=== PATIENT | female | born 1985 | race Caucasian/White ===

== ENCOUNTER 2016-11-18 11:13 | Emergency (ER) | payer SELFPAY ==
[2016-11-18 11:26] VITALS: TEMP 97.9
[2016-11-18 12:09] LABS: COLOR YELLOW; LEUKOCYTE ESTERASE,URINE 1+ (NEGATIVE); NITRITE,URINE POSITIVE (NEGATIVE)
--- NOTE | 2016-11-18 12:14 | EDPHY ---
H & P Stated Complaint: UTI sxs; also has L flank and abd pain Time Seen by Provider: 11/18/16 11:32 HPI/ROS: CHIEF COMPLAINT: Abdominal pain, flank pain HISTORY OF PRESENT ILLNESS: 31-year-old female presents emergency department complaining of a 3 day history of urinary frequency, urgency and dysuria. She reports left lower quadrant abdominal pain and flank pain as well that started today. Patient denies any new vaginal discharge, no odor. She reports pain with intercourse. Patient is sexually active, she reports a history herpes as a teenager, she denies other history of STDs. Patient reports subjective fevers and chills. Decreased appetite. She denies any change in bowel pattern. Patient has had multiple abdominal surgeries since she was an where she had most of her small bowel removed. She has short-bowel syndrome. Patient reports a history of ovarian cysts and urinary tract infections. REVIEW OF SYSTEMS: A comprehensive 10 point review of systems is otherwise negative aside from elements mentioned in the history of present illness. Source: Patient Exam Limitations: No limitations - Personal History LMP (Females 10-55): 15-21 Days Ago Current Tetanus Diphtheria and Acellular Pertussis (TDAP): Yes - Medical/Surgical History Other PMH: short bowel syndrome. ovarian cyst. recurrent UTIs - Social History Smoking Status: Never smoked - Physical Exam Exam: Physical Exam Gen: Alert and Oriented, grimacing HEENT: PERRL, moist mucous membranes NECK: no meningismus CV: regular rate and regular rhythm PULM: CTAB, no wheezes ABDOMEN: soft, diffuse lower abdominal tenderness to palpation BACK: Left CVA tenderness NEURO: Neurologically grossly intact EXTREMITIES: normal appearing SKIN: no rash or break in skin on exposed skin PSYCH: answers questions appropriately. Constitutional: Initial Vital Signs Temperature (C) 36.6 C 11/18/16 11:21 Heart Rate 95 11/18/16 11:21 Respiratory Rate 18 11/18/16 11:21 Blood Pressure 98/68 L 11/18/16 11:21 O2 Sat (%) 94 11/18/16 11:21 O2 Delivery Mode Room Air Allergies/Adverse Reactions: azithromycin [From Zithromax] Allergy (Intermediate, Verified 11/18/16 11:28) full body rash/hives ceftriaxone [From Rocephin] Allergy (Intermediate, Verified 11/18/16 11:28) full body rash/hives codeine Allergy (Intermediate, Verified 11/18/16 11:28) full body rash/hives levofloxacin [From Levaquin] Allergy (Intermediate, Verified 11/18/16 11:28) full body rash/hives Penicillins Allergy (Intermediate, Verified 11/18/16 11:28) full body rash/hives Home Medications: Medication Instructions Recorded Cephalexin [Keflex] 500 mg PO TID 7 Days 11/18/16 Phenazopyridine HCl [Pyridium] 200 mg PO TID #6 tab 11/18/16 Medical Decision Making ED Course/Re-evaluation: IV is established, CBC and chemistry panel obtained along with urinalysis. CBC is normal with a normal WBC. Chemistry panel shows a creatinine of 1.3. Urinalysis shows 50-182 WBCs and positive nitrates. Patient will be treated with Keflex. She is given her 1st dose in the emergency department and sent home with a prescription of this. Patient agrees to follow up with [facility] this week to have her kidney function tests repeated. I have recommended hydration and have told her to not take NSAIDs until she has her repeat kidney function tests. Chlamydia and gonorrhea tests are pending. Patient does not want to be treated for these, she will call for her results. Differential Diagnosis: Diagnosis considered but not limited to urinary tract infection, pyelonephritis , STD, tubo-ovarian abscess. - Data Points Laboratory Results: Laboratory Results 11/18/16 12:22 11/18/16 12:22 11/18/16 11/18/16 11/18/16 12:22 12:22 11:25 WBC 5.90 10^3/uL 10^3/uL (3.80-9.50) RBC 4.44 10^6/uL 10^6/uL (4.18-5.33) Hgb 13.4 g/dL g/dL (12.6-16.3) Hct 39.6 % % (38.0-47.0) MCV 89.2 fL fL (81.5-99.8) MCH 30.2 pg pg (27.9-34.1) MCHC 33.8 g/dL g/dL (32.4-36.7) RDW 12.9 % % (11.5-15.2) Plt Count 192 10^3/uL 10^3/uL (150-400) MPV 9.4 fL fL (8.7-11.7) Neut % (Auto) 58.6 % % (39.3-74.2) Lymph % (Auto) 29.5 % % (15.0-45.0) [place] % (Auto) 6.6 % % (4.5-13.0) Eos % (Auto) 4.6 % % (0.6-7.6) Baso % (Auto) 0.5 % % (0.3-1.7) Nucleat RBC Rel Count 0.0 % % (0.0-0.2) Absolute Neuts (auto) 3.46 10^3/uL 10^3/uL (1.70-6.50) Absolute Lymphs (auto) 1.74 10^3/uL 10^3/uL (1.00-3.00) Absolute Monos (auto) 0.39 10^3/uL 10^3/uL (0.30-0.80) Absolute Eos (auto) 0.27 10^3/uL 10^3/uL (0.03-0.40) Absolute Basos (auto) 0.03 10^3/uL 10^3/uL (0.02-0.10) Absolute Nucleated RBC 0.00 10^3/uL 10^3/uL (0-0.01) Immature Gran % 0.2 % % (0.0-1.1) Immature Gran # 0.01 10^3/uL 10^3/uL (0.00-0.10) Sodium 139 mEq/L mEq/L (134-144) Potassium 4.5 mEq/L mEq/L (3.5-5.2) Chloride 101 mEq/L mEq/L (97-110) Carbon Dioxide 27 mEq/l mEq/l (22-31) Anion Gap 11 mEq/L mEq/L (8-16) BUN 18 mg/dL mg/dL (7-23) Creatinine 1.3 mg/dL H mg/dL (0.6-1.0) Estimated GFR 47 Glucose 83 mg/dL mg/dL (70-100) Calcium 9.6 mg/dL mg/dL (8.5-10.4) Urine Color Urine Appearance Urine pH Ur Specific [place] Urine Protein Urine Ketones Urine Blood Urine Nitrate Urine Bilirubin Urine Urobilinogen Ur Leukocyte Esterase Urine RBC Urine WBC Ur Epithelial Cells Calcium Oxalate Crystal Urine Bacteria Urine Mucus Urine Glucose Urine Test C.trachomatis RNA (TMA) Pending N.gonorrhoeae RNA (TMA) Pending 11/18/16 11/18/16 11:25 11:25 WBC RBC Hgb Hct MCV MCH MCHC RDW Plt Count MPV Neut % (Auto) Lymph % (Auto) [place] % (Auto) Eos % (Auto) Baso % (Auto) Nucleat RBC Rel Count Absolute Neuts (auto) Absolute Lymphs (auto) Absolute Monos (auto) Absolute Eos (auto) Absolute Basos (auto) Absolute Nucleated RBC Immature Gran % Immature Gran # Sodium Potassium Chloride Carbon Dioxide Anion Gap BUN Creatinine Estimated GFR Glucose Calcium Urine Color YELLOW Urine Appearance HAZY Urine pH 6.0 (5.0-7.5) Ur Specific [place] 1.015 (1.002-1.030) Urine Protein NEGATIVE (NEGATIVE) Urine Ketones NEGATIVE (NEGATIVE) Urine Blood 1+ H (NEGATIVE) Urine Nitrate POSITIVE H (NEGATIVE) Urine Bilirubin NEGATIVE (NEGATIVE) Urine Urobilinogen NEGATIVE EU EU (0.2-1.0) Ur Leukocyte Esterase 1+ H (NEGATIVE) Urine RBC 5-10 /hpf H /hpf (0-3) Urine WBC 50-182 /hpf H /hpf (0-3) Ur Epithelial Cells TRACE /lpf /lpf (NONE-1+) Calcium Oxalate Crystal PRESENT /hpf /hpf (NONE-1+) Urine Bacteria 1+ /hpf H /hpf (NONE SEEN) Urine Mucus TRACE /lpf /lpf (NONE-1+) Urine Glucose NEGATIVE (NEGATIVE) Urine Test NEGATIVE C.trachomatis RNA (TMA) N.gonorrhoeae RNA (TMA) Medications Given: Discontinued Medications Acetaminophen (Tylenol) 650 mg PO EDNOW ONE Stop: 11/18/16 13:22 Last Admin: 11/18/16 13:24 Dose: 650 mg Phenazopyridine HCl (Pyridium) 200 mg PO EDNOW ONE Stop: 11/18/16 13:05 Last Admin: 11/18/16 13:24 Dose: 200 mg Departure - Departure Disposition: Home, Routine, Self-Care Clinical Impression: Urinary tract infection Qualifiers: Urinary tract infection type: acute cystitis Hematuria presence: with hematuria Qualified Code(s): N30.01 - Acute cystitis with hematuria Condition: Good Instructions: Urinary Tract Infection in Women (ED) Additional Instructions: Take 500mg of cephalexin three times daily for 7 days. Take 200mg pyridium every 8 hours as needed for pain. Return to the emergency department for any fevers, vomiting, worsening symptoms or concerns. [facility] to have [facility] function tests repeated. Referrals: [facility],. [Clinic] - As per Instructions Prescriptions: Cephalexin [Keflex] 500 mg PO TID 7 Days Phenazopyridine HCl [Pyridium] 200 mg PO TID #6 tab
[2016-11-18 12:20] LABS: BACTERIA 1+ /hpf (NONE SEEN); MUCUS TRACE /lpf (NONE-1+); WBC,URINE 50-182 /hpf (0-3)
[2016-11-18 12:38] LABS: % IMMATURE GRANULYOCYTES 0.2 % (0.0-1.1); ABSOLUTE IMMATURE GRANULOCYTES 0.01 10^3/uL (0.00-0.10); ADD DIFF? NO; ADD MORPH? NO; ADD SCAN? NO; ATYPICAL LYMPHOCYTE FLAG 10 (0-99); FRAGMENT RBC FLAG 0 (0-99); HEMATOCRIT 39.6 % (38.0-47.0); HEMOGLOBIN 13.4 g/dL (12.6-16.3); LEFT SHIFT FLG 0 (0-99); LIPEMIA HEMOLYSIS FLAG 90 (0-99); MEAN CELL HEMOGLOBIN 30.2 pg (27.9-34.1); MEAN CELL HEMOGLOBIN CONCENTR. 33.8 g/dL (32.4-36.7); MEAN CELL VOLUME 89.2 fL (81.5-99.8); MEAN PLATELET VOLUME 9.4 fL (8.7-11.7); PLATELET CLUMPS FLAG 0 (0-99); PLATELET COUNT 192 10^3/uL (150-400); RED BLOOD CELL COUNT 4.44 10^6/uL (4.18-5.33); RED CELL DISTRIBUTION WIDTH 12.9 % (11.5-15.2)
[2016-11-18 12:49] LABS: ANION GAP 11 mEq/L (8-16); CALCIUM 9.6 mg/dL (8.5-10.4); CARBON DIOXIDE 27 mEq/l (22-31); CHLORIDE 101 mEq/L (97-110); CREATININE 1.3 mg/dL (0.6-1.0); GLOMERULAR FILTRATION RATE 47; GLUCOSE 83 mg/dL (70-100); POTASSIUM 4.5 mEq/L (3.5-5.2); SODIUM 139 mEq/L (134-144)
[2016-11-18] MEDS ORDERED: PHENAZOPYRIDINE HCL 200 MG TAB PO ONE (13:04)
[2016-11-18] MEDS ORDERED: IBUPROFEN 600 MG TAB PO ONE (13:20)
[2016-11-18] MEDS ORDERED: ACETAMINOPHEN 325 MG TAB PO ONE (13:21)
[2016-11-18 13:35] VITALS: BP 102/69; PULSE 104; RESP 16; O2SAT 96
[2016-11-19 13:29] LABS: CHLAMYDIA AMPLIFICATION GENPRB NEGATIVE (NEGATIVE)
== END 2016-11-18 13:34 | disposition home or self-care (01) ==
DX: N30.01 Acute cystitis with hematuria (principal); B96.20 Unspecified Escherichia coli [E. coli] as the cause of diseases classified elsewhere

== ENCOUNTER 2017-05-02 13:32 | Day surgery (SDC) | payer MEDICAID ==
[2017-05-02 13:43] VITALS: TEMP 96.6
[2017-05-02] MEDS ORDERED: FAMOTIDINE 20 MG/NACL 50 ML IV ONE (13:49)
[2017-05-02] MEDS ORDERED: ONDANSETRON 4 MG/2 ML VIAL IVP ONE (13:49)
[2017-05-02] MEDS ORDERED: GLUCAGON HCL 1 MG VIAL IVP ONE (13:50)
[2017-05-02 14:02] LABS: PLATELET COUNT 227 10^3/uL (150-400)
--- NOTE | 2017-05-02 14:14 | EDPHY ---
H & P Time Seen by Provider: 05/02/17 13:34 HPI/ROS: CHIEF COMPLAINT: Foreign body in throat HISTORY OF PRESENT ILLNESS: Patient is a 31-year-old female who presents emergency room with foreign body stuck in her throat. Patient states that she was eating a brought worst when it got stuck in her mid chest. She now is unable to tolerate her secretions. She has no shortness of breath. No cough. Patient has had previous issues with food getting stuck. She has previously received medication that is released the food. Patient also has small bowel syndrome with numerous abdominal surgeries. She has never had surgery on her soft [place]. She has had no dilatation to her esophagus. REVIEW OF SYSTEMS: My complete review of systems is negative except as mentioned in the HPI. Past Medical/Surgical History: Includes previous esophageal foreign body, small-bowel syndrome, kidney stone Past surgical history: Resection of small intestine, nephrostomy tube, cholecystectomy Social history: The patient does smoke Smoking Status: Never smoked Physical Exam: Vitals noted GENERAL: Mild acute distress, alert. HEENT: Eyes normal to inspection, normal pharynx, no signs of dehydration. NECK: [No thyromegaly, no lymphadenopathy, supple. No stridor RESPIRATORY: Clear to auscultation bilaterally, no rales, rhonchi or wheezing. CVS: Regular rate and rhythm, no rubs, murmurs, or gallops. ABDOMEN: Soft, nontender, nondistended, no organomegaly. BACK: Normal to inspection, no CVA tenderness. SKIN: Normal color, no rash, warm, dry. No pallor. EXTREMITIES: No pedal edema, no calf tenderness, no Homans sign or cords, no joint swelling. NEURO/PSYCH: Alert and oriented x3, normal mood and affect, normal motor sensory exam. Constitutional: Initial Vital Signs Temperature (C) 35.9 C L 05/02/17 13:39 Heart Rate 71 05/02/17 13:39 Respiratory Rate 24 H 05/02/17 13:39 Blood Pressure 116/84 H 05/02/17 13:39 O2 Sat (%) 93 05/02/17 13:39 O2 Delivery Mode Room Air Allergies/Adverse Reactions: azithromycin [From Zithromax] Allergy (Intermediate, Verified 05/02/17 13:37) full body rash/hives ceftriaxone [From Rocephin] Allergy (Intermediate, Verified 05/02/17 13:37) full body rash/hives codeine Allergy (Intermediate, Verified 05/02/17 13:37) full body rash/hives levofloxacin [From Levaquin] Allergy (Intermediate, Verified 05/02/17 13:37) full body rash/hives Penicillins Allergy (Intermediate, Verified 05/02/17 13:37) full body rash/hives Home Medications: Medication Instructions Recorded Albuterol 05/02/17 Medical Decision Making ED Course/Re-evaluation: In the emergency department I discussed possible etiology. An IV was placed. Laboratory studies were obtained. Patient received glucagon 1 g IV and Zofran 4 mg IV. On recheck the patient did not feeling better after receiving glucagon. I subsequently paged GI. I discussed case with Dr. Lopez. He will place the patient on the schedule to have endoscopy performed. He recommend the patient receive Ativan 1 mg IV. This was ordered. I discussed the plan with the patient. I answered all her questions. On recheck the patient was stable. She had no respiratory distress. Differential Diagnosis: My differential includes but is not limited to esophageal foreign body, airway occlusion, tracheal foreign body, allergic reaction, esophageal rupture, peptic ulcer disease, stricture - Data Points Laboratory Results: Laboratory Results 05/02/17 13:48 05/02/17 13:48 05/02/17 05/02/17 05/02/17 13:48 13:48 13:48 WBC 6.61 10^3/uL 10^3/uL (3.80-9.50) RBC 4.46 10^6/uL 10^6/uL (4.18-5.33) Hgb 14.0 g/dL g/dL (12.6-16.3) Hct 41.4 % % (38.0-47.0) MCV 92.8 fL fL (81.5-99.8) MCH 31.4 pg pg (27.9-34.1) MCHC 33.8 g/dL g/dL (32.4-36.7) RDW 13.6 % % (11.5-15.2) Plt Count 227 10^3/uL 10^3/uL (150-400) MPV 9.5 fL fL (8.7-11.7) Neut % (Auto) 59.1 % % (39.3-74.2) Lymph % (Auto) 28.3 % % (15.0-45.0) [place] % (Auto) 8.5 % % (4.5-13.0) Eos % (Auto) 3.0 % % (0.6-7.6) Baso % (Auto) 0.6 % % (0.3-1.7) Nucleat RBC Rel Count 0.0 % % (0.0-0.2) Absolute Neuts (auto) 3.91 10^3/uL 10^3/uL (1.70-6.50) Absolute Lymphs (auto) 1.87 10^3/uL 10^3/uL (1.00-3.00) Absolute Monos (auto) 0.56 10^3/uL 10^3/uL (0.30-0.80) Absolute Eos (auto) 0.20 10^3/uL 10^3/uL (0.03-0.40) Absolute Basos (auto) 0.04 10^3/uL 10^3/uL (0.02-0.10) Absolute Nucleated RBC 0.00 10^3/uL 10^3/uL (0-0.01) Immature Gran % 0.5 % % (0.0-1.1) Immature Gran # 0.03 10^3/uL 10^3/uL (0.00-0.10) Sodium 143 mEq/L mEq/L (135-145) Potassium 3.9 mEq/L mEq/L (3.5-5.2) Chloride 108 mEq/L mEq/L (97-110) Carbon Dioxide 19 mEq/l L mEq/l (22-31) Anion Gap 16 mEq/L mEq/L (8-16) BUN 13 mg/dL mg/dL (7-23) Creatinine 0.8 mg/dL mg/dL (0.6-1.0) Estimated GFR > 60 Glucose 80 mg/dL mg/dL (70-100) Calcium 9.3 mg/dL mg/dL (8.5-10.4) Beta HCG, Qual NEGATIVE Medications Given: Discontinued Medications Glucagon (Glucagon) 1 mg IVP EDNOW ONE Stop: 05/02/17 13:51 Last Admin: 05/02/17 13:58 Dose: 1 mg Famotidine/Sodium Chloride (Pepcid 20 Mg (Premix)) 50 mls @ 200 mls/hr IV EDNOW ONE Stop: 05/02/17 14:03 Last Admin: 05/02/17 14:00 Dose: 50 mls Ondansetron HCl (Zofran) 4 mg IVP EDNOW ONE Stop: 05/02/17 13:50 Last Admin: 05/02/17 13:57 Dose: 4 mg Departure - Departure Disposition: To OP Cath/Surgery Clinical Impression: Esophageal foreign body Qualifiers: Encounter type: initial encounter Qualified Code(s): T18.108A - Unspecified foreign body in esophagus causing other injury, initial encounter Condition: Good Instructions: Esophageal Foreign Body (ED) Referrals: Cosmo Lopez MD, FACG [Medical Doctor] - As per Instructions
[2017-05-02] MEDS ORDERED: LORazepam 2 MG/ML INJ IVP ONE (14:37)
[2017-05-02] MEDS ORDERED: fentaNYL 100 MCG/2 ML INJ ONE (15:33)
[2017-05-02] MEDS ORDERED: MIDAZOLAM 2 MG/2 ML VIAL ONE (15:33)
[2017-05-02 15:38] VITALS: RESP 16
--- NOTE | 2017-05-02 16:20 | GIREPORT ---
[facility] - Endoscopy Department Patient Name: Lissa Moseley Procedure Date: 05/02/2017 3:18 PM Patient Type: Inpatient Attending MD/ ER Physician: Cosmo Lopez MD Procedure: Upper GI endoscopy Indications: Note dictated, consult appreciated. Foreign body in the esophagus. Providers: Cosmo Lopez MD Referring MD: Mary Jane Hsu MD Medicines: Fentanyl 100 micrograms IV, Midazolam 6 mg IV, Diphenhydramine 50 mg IV Complications: No immediate complications. Description of Procedure: After obtaining informed consent, the endoscope was passed under direct vision. Throughout the procedure, the patient's blood pressure, pulse, and oxygen saturations were monitored continuously. The Endoscope was intro duced through the mouth, and advanced to the pylorus. Findings: Food was found in the middle third of the esophagus. Removal of food wa s accomplished, by gently pushing into the stomach. A few subtle rings were found in the lower third of the esophagus. Biop sies were taken with a cold forceps for histology, from this as well as the upper esophagus. A guidewire was placed and the scope was withdrawn. Dilation was performed with a Savary dilator with no resistance at 51 Fr. The stomach was normal. Estimated Blood Loss: Estimated blood loss: none. Post Op Diagnosis: - Food in the middle third of the esophagus. Removal was successful. Afterwards, esophagus dilated fully. Recommendation: - Await pathology results, to r/o eosinophilic esophagitis. - Else, return to see me prn. - Thank you for allowing me to help in the management of this patient. Jessica Wilburn MD Cosmo Lopez MD 05/02/2017 4:20:36 PM This report has been signed electronicallyPeter MD Jessica Number of Addenda: 0 Note Initiated On: 05/02/2017 3:18 PM [email or web address]
[2017-05-02 16:29] VITALS: BP 81/50; PULSE 67; O2SAT 99
--- NOTE | 2017-05-02 20:48 | GCON ---
[f rep st] CONSULTATION GASTROINTESTINAL EMERGENCY ROOM CONSULTATION DATE OF CONSULTATION: 05/02/2017 I was kindly requested to see the patient by Dr. Mary Jane Hsu in consultation for a chief complaint of dysphagia. HISTORY OF PRESENT ILLNESS: She is a 31-year-old white female, who was eating a bratwurst, and felt it get stuck in her mid chest. Since, she has been unable to tolerate her own secretions. She denies shortness of breath or cough. She has had a previous issue with food getting stuck. She can have heartburn once or twice a week, but does not use anything for this. She denies hematemesis, fever. PAST MEDICAL HISTORY: 1. As above. 2. Apparent short-bowel syndrome due to numerous abdominal surgeries. 3. Cholecystectomy. 4. Passed kidney stones. 5. Otherwise, noncontributory. ALLERGIES: Azithromycin, ceftriaxone, codeine, levofloxacin, and penicillin. MEDICATIONS: Metered-dose inhaler. SOCIAL HISTORY: She is . Her 's name is Ritesh, telephone . FAMILY HISTORY: Negative for similar dysphagia. REVIEW OF SYSTEMS: Positive pertinent review of systems as per my HPI. Otherwise, a complete review of systems is negative. PHYSICAL EXAM: GENERAL: A nontoxic-appearing woman. VITAL SIGNS: Stable. SKIN: Warm, dry. EYES: Pupils equal, round, and reactive to light and accommodation. EAR, NOSE, MOUTH, AND THROAT: Oropharynx without masses, moist mucosa. CARDIOVASCULAR: Normal S2. Normal PMI. RESPIRATORY: Clear to auscultation and percussion anteriorly. GASTROINTESTINAL: Soft, nontender. Well-healed surgical scars. NEUROLOGIC: Grossly nonfocal, with cranial nerves grossly intact. PSYCHIATRIC: Orientation, insight appropriate. MUSCULOSKELETAL: Skin grossly normal throughout, normal station. LABORATORIES: Negative beta HCG. ASSESSMENT: 1. Sensation of food was stuck in her mid chest. Suspect she has a foreign body present. 2. Episodes of dysphagia in the past. Eosinophilic esophagitis is possible. Acid peptic stricture is possible. PLAN: 1. Urgent upper endoscopy. 2. Further management pending on the above. Thank you for allowing me to help in the management of this patient. /[id number]/MODL MTDD
== END 2017-05-02 17:50 | disposition home or self-care (01) ==
LOC: FSGY 15:45
PROVIDERS: ATTEND Internal Medicine Gastroenterology
PROC: 0D728ZZ Dilation of Middle Esophagus, Via Natural or Artificial Opening Endoscopic (ICD-10-PCS; principal; 2017-05-02 16:00)
PROC: 0DB18ZX Excision of Upper Esophagus, Via Natural or Artificial Opening Endoscopic, Diagnostic (ICD-10-PCS; principal; 2017-05-02 16:00)
PROC: 0DB38ZX Excision of Lower Esophagus, Via Natural or Artificial Opening Endoscopic, Diagnostic (ICD-10-PCS; principal; 2017-05-02 16:00)
PROC: 0DC28ZZ Extirpation of Matter from Middle Esophagus, Via Natural or Artificial Opening Endoscopic (ICD-10-PCS; principal; 2017-05-02 16:00)
DX: T18.108A Unspecified foreign body in esophagus causing other injury, initial encounter (principal); Y92.9 Unspecified place or not applicable; F17.200 Nicotine dependence, unspecified, uncomplicated; Z87.442 Personal history of urinary calculi; Z88.0 Allergy status to penicillin
CPT/HCPCS: 96374; J1200; J1610; J2060; J2250; J2405; J3010